=== PATIENT | female | born 1995 | race Caucasian/White ===

== ENCOUNTER 2018-06-23 22:30 | Inpatient (IN) | payer OTHER ==
[2018-06-24] MEDS ORDERED: Ondansetron 4 MG/2 ML SDV IVPUSH PRN (01:13)
[2018-06-24] MEDS ORDERED: Nalbuphine 20 MG/ML 1 ML Syringe IVPUSH PRN (01:13)
[2018-06-24] MEDS ORDERED: Sodium Chloride 0.9% 10 ML Syringe FLUSH PRN (01:13)
[2018-06-24] MEDS ORDERED: Ampicillin 2 GM in Sodium Chloride 0.9% 100 ML IV ONE (01:13)
[2018-06-24] MEDS ORDERED: Oxytocin/Lactated Ringers 10 UNIT/1,000 ML BAG IV SCH ×2 (01:15)
[2018-06-24] MEDS: Lactated Ringers 1,000 ML IV SCH ×3 (03:20→08:08)
[2018-06-24] MEDS: Ampicillin 1 GM in Sodium Chloride 0.9% 100 ML IV SCH ×2 (07:16→11:36)
[2018-06-24] MEDS ORDERED: diphenhydrAMINE 50 MG/ML SDV IVPUSH PRN (07:49)
[2018-06-24] MEDS ORDERED: fentaNYL 100 MCG/2 ML SDV EPIDUR PRN (07:49)
[2018-06-24] MEDS ORDERED: ePHEDrine 50 MG/ML SDV IVPUSH PRN (07:49)
[2018-06-24] MEDS ORDERED: fentaNYL/Bupivacaine-NS 2 MCG/ML-0.125%/PF 100 ML Bag EP SCH (08:00)
[2018-06-24] MEDS ORDERED: Lidocaine 1.5% with EPINEPHrine 1:200,000 5 ML Amp ONE (08:00)
[2018-06-24] MEDS ORDERED: Bupivacaine 0.25% 10 ML SDV ONE (08:00)
--- NOTE | 2018-06-24 08:06 | PCM.PREANE ---
Preanesthetic Assessment - Procedure Proposed Procedure: chhaya - Anesthesia/Transfusion/Family Hx Anesthesia History: Prior Anesthesia Without Reaction Family History of Anesthesia Reaction: No Transfusion History: Prior Transfusion Without Reaction - Review of Systems General: No Symptoms Pulmonary: No Symptoms Cardiovascular: No Symptoms Gastrointestinal: No Symptoms Neurological: No Symptoms Other: Reports: Thyroid Problems, Depression - Physical Assessment O2 Sat by Pulse Oximetry: 96 Respiratory Rate: 16 Vital Signs: Last Vital Signs Temp 99.2 F 06/24/18 01:09 Pulse 100 06/24/18 01:09 Resp 16 06/24/18 01:09 BP 123/71 06/24/18 01:09 Pulse Ox 96 06/24/18 01:09 Height: 5 ft 5 in Weight: 93.44 kg Mental Status: Alert & Oriented x3 Airway Class: Mallampati = 1 Dentition: Reports: Normal Dentition Thyro-Mental Finger Breadths: 3 Mouth Opening Finger Breadths: 3 ROM/Head Extension: Full Lungs: Clear to Auscultation, Normal Respiratory Effort Cardiovascular: Regular Rate, Regular Rhythm - Lab Values: Laboratory Last Values WBC 11.03 K/mm3 (3.98-10.04) H 06/24/18 01:30 RBC 3.94 M/mm3 (3.98-5.22) L 06/24/18 01:30 Hgb 10.7 gm/L (11.2-15.7) L 06/24/18 01:30 Hct 32.7 % (34.1-44.9) L 06/24/18 01:30 MCV 83.0 fl (79.4-94.8) 06/24/18 01:30 MCH 27.2 pg (25.6-32.2) 06/24/18 01:30 MCHC 32.7 g/dl (32.2-35.5) 06/24/18 01:30 RDW Std Deviation 51.6 fL (36.4-46.3) H 06/24/18 01:30 Plt Count 253 K/mm3 (182-369) 06/24/18 01:30 MPV 9.7 fl (9.4-12.3) 06/24/18 01:30 Neut % (Auto) 75.0 % (34.0-71.1) H 06/24/18 01:30 Lymph % (Auto) 17.2 % (19.3-51.7) L 06/24/18 01:30 Sequoyah % (Auto) 6.7 % (4.7-12.5) 06/24/18 01:30 Eos % (Auto) 0.5 (0.7-5.8) L 06/24/18 01:30 Baso % (Auto) 0.1 % (0.1-1.2) 06/24/18 01:30 Neut # (Auto) 8.27 K/mm3 (1.56-6.13) H 06/24/18 01:30 Lymph # (Auto) 1.90 K/mm3 (1.18-3.74) 06/24/18 01:30 Sequoyah # (Auto) 0.74 K/mm3 (0.24-0.36) H 06/24/18 01:30 Eos # (Auto) 0.06 K/mm3 (0.04-0.36) 06/24/18 01:30 Baso # (Auto) 0.01 K/mm3 (0.01-0.08) 06/24/18 01:30 Blood Type O POSITIVE 06/24/18 01:30 Gel Antibody Screen Negative 06/24/18 01:30 - Allergies Allergies/Adverse Reactions: Allergies Allergy/AdvReac Type Severity Reaction Status Date / Time No Known Allergies Allergy Unverified 04/15/18 20:24 - Blood Blood Available: No - Acknowledgements Anesthesia Type Planned: Epidural Pt an Appropriate Candidate for the Planned Anesthesia: Yes Alternatives and Risks of Anesthesia Discussed w Pt/Guardian: Yes Pt/Guardian Understands and Agrees with Anesthesia Plan: Yes PreAnesthesia Questionnaire - Past Health History Medical/Surgical History: Denies Medical/Surgical History Cardiovascular History: Reports: None Respiratory History: Reports: None Gastrointestinal History: Reports: None 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: Psychiatric History: Reports: Depression Endocrine/Metabolic History: Reports: Hypothyroidism, Other (See Below) Other Endocrine/Metabolic History: Tyrese's Hematologic History: Reports: Blood Transfusion(s), Other (See Below) Other Hematologic History: Blood transfusion following Primary c/s - Past Surgical History Female Surgical History: Reports: Section - SUBSTANCE USE Smoking Status *Q: Never Smoker Tobacco Use Within Last Twelve Months: No Second Hand Smoke Exposure: No Days Per Week of Alcohol Use: 0 Recreational Drug Use History: No - HOME MEDS Home Medications: Home Meds Iron 18 mg PO DAILY 12/25/15 [History] Levothyroxine [Synthroid] 100 mcg PO ACBREAKFAST 12/25/15 [History] oxyCODONE HCl/Acetaminophen [Endocet 5-325 Tablet] 1 each PO Q4H PRN 12/25/15 [ History] - CURRENT (IN HOUSE) MEDS Current Meds: Current Medications Diphenhydramine HCl (Benadryl) 25 mg IVPUSH Q6H PRN PRN Reason: pruritis Ephedrine Sulfate (Ephedrine Sulfate) 5 mg IVPUSH ASDIRECTED PRN PRN Reason: Hypotension Fentanyl (Sublimaze) 100 mcg EPIDUR Q3H PRN PRN Reason: Pain Fentanyl/Bupivacaine HCl (Foqauscw-Arqem-Pz 2 Mcg/Ml-0.125%) 100 ml EP ASDIRECTED CARMEN Ampicillin Sodium 1 gm/ Sodium (Chloride) 100 mls @ 200 mls/hr IV Q4H CARMEN Last Admin: 06/24/18 07:16 Dose: 200 mls/hr Lactated Ringer's (Ringers, Lactated) 1,000 mls @ 100 mls/hr IV ASDIRECTED CARMEN Last Admin: 06/24/18 07:15 Dose: 100 mls/hr Oxytocin/Lactated Ringer's (Pitocin In Lr 10 Units/1,000 Ml) 10 unit in 1,000 mls @ 500 mls/hr IV CONTINUOUS CARMEN Oxytocin/Lactated Ringer's (Pitocin In Lr 10 Units/1,000 Ml) 10 unit in 1,000 mls @ 12 mls/hr IV TITRATE CARMEN; Protocol Last Admin: 06/24/18 03:40 Dose: 2 munits/min, 12 mls/hr Nalbuphine HCl (Nubain) 10 mg IVPUSH Q2H PRN PRN Reason: pain Ondansetron HCl (Zofran) 4 mg IVPUSH Q4H PRN PRN Reason: Nausea/Vomiting Sodium Chloride (Saline Flush) 10 ml FLUSH ASDIRECTED PRN PRN Reason: Keep Vein Open Discontinued Medications Ampicillin Sodium 2 gm/ Sodium (Chloride) 100 mls @ 200 mls/hr IV ONETIME ONE Stop: 06/24/18 01:42 Last Admin: 03/14/19 03:20 Dose: 200 mls/hr
--- NOTE | 2018-06-24 14:04 | PCM.LDHP ---
L&D History of Present Illness - General Date of Service: 06/24/18 Admit Problem/Dx: Patient Status Order with Admit Dx/Problem 06/24/18 01:09 Patient Status [ADT] Routine 06/24/18 07:34 Admission Status [Patient Status] [ADT] Routine Admission Diagnosis/Problem Admission Diagnosis/Problem 06/24/18 13:54 38-6/7 week intrauterine , active labor, cervical change. History of previous section desire for . Source of Information: Patient History Limitations: Reports: No Limitations - History of Present Illness Introduction:: Luz Maria Is a 23-year-old 2 para 1001 white female who is admitted for active labor. ANGEL is 07/02/[address] her at 38-6/7 weeks gestational age at the time of her admission. Active labor, cervical change noted. Wellbutrin history 2 para 1001. Patient had menarche approximately age 11. LMP 09/25/2017. LMP is the dating primary use for . It is supported by 2 ultrasounds 31/12/2017 02/16/2018. Patient's previous resulted in delivery of a 9 lbs. 2 oz. female infant on 12/18/2015 via primary section done for failure to progress/failed vacuum extraction delivery. With this patient is seen on a regular basis since her first visit was on 01/13/2018. She made good fundal height growth. Weight gain has been from 194-204 for 10 pound gain. She's had some depression symptoms. She declined genetic testing. She desires an epidural in labor and delivery. She had her flu shot on 01/13/2018. She is group B strep positive. She has a history of Tyrese's disease. She received her T Dap on 04/21/2018. She is rubella immune. Fundal height growth appropriate. She plans to breast-feed. She has history of vitamin D deficiency. Laboratory testing and shows blood to be positive with negative antibody screen. First labs show hemoglobin 12.9 g/dL and platelets 238 ,000. She is rubella immune. RPR is nonreactive. Group B strep noted on initial urine culture. GC and chlamydia assays both negative. Her second trimester labs showed a hemoglobin of 10.5 g/dL. Platelets were 275,000. One-hour GTT was 144 but three-hour glucose tolerance test was normal. TSH on 04/21/2018 was 1.539. RPR same time was nonreactive. Allergies Medications: 1. Levothyroxine 175 mg by mouth every Thursday and Thursday, levothyroxin 150 mg by mouth Thursday through Thursday. 2. vitamins daily Past medical history: Hypothyroidism 2. Tyrese's thyroiditis history Past surgical history: unremarkable Family history: Patient's sister and mother been diagnosed with Tyrese's thyroiditis. Mother is in good health otherwise. Father is alive and well. One brother alive and well. Maternal grandfather is alive and well. Maternal grandmother is alive but history of breast cancer 2 status post chemotherapy, radiation, mastectomy, also with heart valve transplant. Paternal grandfather is alive and well. Paternal grandmother is in late 70s from Alzheimer' s. No family history of cancer conference related issues, bleeding or clotting abnormalities. Social history: Patient is , lives in [facility], is [place]. She does not use any significant most alcohol, drugs or tobacco. Review of systems: In general patient has no complaints other than contractions. Babies been active. Skin: Negative Lungs: No infectious symptoms or shortness of breath Cardiovascular: No chest pain or exercise intolerance Breasts: No lumps, changes in size, pain, dimpling, discharge or axillary or supraclavicular concerns. GI: Negative : Negative other than changes associated . Musculoskeletal: Negative Neurological: Negative In general the patient is well-developed, well-nourished, pleasant female of stated age in no acute distress. Skin is warm dry without lesions. HEENT, neck and back within normal limits. Lungs are clear with good breath sounds in all lung rodriguez. Cardiovascular exam shows regular and rhythm without murmurs. Abdomen is flat, soft, nontender without masses or organomegaly. Positive bowel sounds are noted. No inguinal lymphadenopathy or hernias are noted. Breast exam deferred having having been done previously and found to be normal. Genital shows cervical exam on admission to be 3 cm, significantly thinned out from previous evaluation. Bulging bag. Extremities and neurological exam are grossly within normal limits. Pain Score: 9 - Related Data Allergies/Adverse Reactions: Allergies Allergy/AdvReac Type Severity Reaction Status Date / Time No Known Allergies Allergy Unverified 04/15/18 20:24 Home Medications: Home Meds Iron 18 mg PO DAILY 12/25/15 [History] Levothyroxine [Synthroid] 100 mcg PO ACBREAKFAST 12/25/15 [History] oxyCODONE HCl/Acetaminophen [Endocet 5-325 Tablet] 1 each PO Q4H PRN 12/25/15 [ History] Past Medical History - Past Health History Medical/Surgical History: Denies Medical/Surgical History Cardiovascular History: Reports: None Respiratory History: Reports: None Gastrointestinal History: Reports: None 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: Psychiatric History: Reports: Depression Endocrine/Metabolic History: Reports: Hypothyroidism, Other (See Below) Other Endocrine/Metabolic History: Tyrese's Hematologic History: Reports: Blood Transfusion(s), Other (See Below) Other Hematologic History: Blood transfusion following Primary c/s - Past Surgical History Female Surgical History: Reports: Section Social & Family History - Family History Family Medical History: Noncontributory - Tobacco Use Smoking Status *Q: Never Smoker Second Hand Smoke Exposure: No - Caffeine Use Caffeine Use: Reports: None - Alcohol Use Days Per Week of Alcohol Use: 0 - Recreational Drug Use Recreational Drug Use: No H&P Review of Systems - Review of Systems: Review Of Systems: See Below L&D Exam - Exam Exam: See Below - Vital Signs Vital Signs: Last Vital Signs Temp 37.3 C 06/24/18 01:09 Pulse 100 06/24/18 01:09 Resp 16 06/24/18 08:06 BP 123/71 06/24/18 01:09 Pulse Ox 96 06/24/18 08:06 Weight: 93.44 kg - Patient Data Lab Results Last 24 hrs: Laboratory Results - last 24 hr 06/24/18 06/24/18 Range/Units 01:30 01:30 WBC 11.03 H (3.98-10.04) K/mm3 RBC 3.94 L (3.98-5.22) M/mm3 Hgb 10.7 L (11.2-15.7) gm/L Hct 32.7 L (34.1-44.9) % MCV 83.0 (79.4-94.8) fl MCH 27.2 (25.6-32.2) pg MCHC 32.7 (32.2-35.5) g/dl RDW Std Deviation 51.6 H (36.4-46.3) fL Plt Count 253 (182-369) K/mm3 MPV 9.7 (9.4-12.3) fl Neut % (Auto) 75.0 H (34.0-71.1) % Lymph % (Auto) 17.2 L (19.3-51.7) % Bibb % (Auto) 6.7 (4.7-12.5) % Eos % (Auto) 0.5 L (0.7-5.8) Baso % (Auto) 0.1 (0.1-1.2) % Neut # (Auto) 8.27 H (1.56-6.13) K/mm3 Lymph # (Auto) 1.90 (1.18-3.74) K/mm3 Bibb # (Auto) 0.74 H (0.24-0.36) K/mm3 Eos # (Auto) 0.06 (0.04-0.36) K/mm3 Baso # (Auto) 0.01 (0.01-0.08) K/mm3 Blood Type O POSITIVE Gel Antibody Screen Negative Result Diagrams: 06/24/18 01:30 Problem List Initiated/Reviewed/Updated: Yes Orders Last 24hrs: Active Orders 24 hr Category Date Time Status Admission Status [Patient Status] [ADT] Routine ADT 06/24/18 07:34 Active Activity as Tolerated [RC] PFP Care 06/24/18 01:13 Active Communication Order [RC] ASDIRECTED Care 06/24/18 01:13 Active Heart Tones [RC] ASDIRECTED Care 06/24/18 01:13 Active Non Stress Test [RC] PER UNIT ROUTINE Care 06/24/18 01:13 Active Notify Provider [RC] ASDIRECTED Care 06/24/18 07:49 Active Notify Provider [RC] PFP Care 06/24/18 01:13 Active Notify Provider [RC] PRN Care 06/24/18 01:13 Active Peripheral IV Care [RC] . DIRECTED Care 06/24/18 01:13 Active Vital Signs [RC] PER UNIT ROUTINE Care 06/24/18 01:09 Active Vital Signs [RC] PER UNIT ROUTINE Care 06/24/18 01:13 Active Regular Diet [DIET] Diet 06/24/18 Breakfast Active PATIENT RETYPE [BBK] Routine Lab 06/24/18 01:30 Received RAPID PLASMA REAGIN,RPR [CHEM] Routine Lab 06/24/18 01:30 Received Ampicillin 1 gm Med 06/24/18 08:00 Active Sodium Chloride 0.9% [Normal Saline] 100 ml IV Q4H Lactated Ringers [Ringers, Lactated] 1,000 ml Med 06/24/18 01:15 Active IV ASDIRECTED Nalbuphine [Nubain] Med 06/24/18 01:13 Active 10 mg IVPUSH Q2H PRN Ondansetron [Zofran] Med 06/24/18 01:13 Active 4 mg IVPUSH Q4H PRN Oxytocin/Lactated Ringers [Pitocin in LR 10 Units/1,000 Med 06/24/18 01:15 Active ML] 10 unit in 1,000 ml IV CONTINUOUS Oxytocin/Lactated Ringers [Pitocin in LR 10 Units/1,000 Med 06/24/18 01:15 Active ML] 10 unit in 1,000 ml IV TITRATE Sodium Chloride 0.9% [Saline Flush] Med 06/24/18 01:13 Active 10 ml FLUSH ASDIRECTED PRN diphenhydrAMINE [Benadryl] Med 06/24/18 07:49 Active 25 mg IVPUSH Q6H PRN ePHEDrine [ePHEDrine sulfate] Med 06/24/18 07:49 Active 5 mg IVPUSH ASDIRECTED PRN fentaNYL [Sublimaze] Med 06/24/18 07:49 Active 100 mcg EPIDUR Q3H PRN fentaNYL/Bupivacaine/NS/PF [[id number]-Mmizj-PE 2 MCG/ML- Med 06/24/18 08:00 Active 0.125%] 100 ml EP ASDIRECTED Electronic Heart Tones Ext w TOCO [WOMSER] Oth 06/24/18 01:13 Ordered Routine Electronic Heart Tones Internal [WOMSER] Per Unit Oth 06/24/18 01:13 Ordered Routine Peripheral IV Insertion Adult [OM.PC] Routine Oth 06/24/18 01:13 Ordered Resuscitation Status Routine Resus Stat 06/24/18 01:09 Ordered Medication Orders Diphenhydramine HCl (Benadryl) 25 mg IVPUSH Q6H PRN PRN Reason: pruritis Ephedrine Sulfate (Ephedrine Sulfate) 5 mg IVPUSH ASDIRECTED PRN PRN Reason: Hypotension Fentanyl (Sublimaze) 100 mcg EPIDUR Q3H PRN PRN Reason: Pain Last Admin: 06/24/18 08:20 Dose: 100 mcg Fentanyl/Bupivacaine HCl (Annnqokg-Djmvo-Ya 2 Mcg/Ml-0.125%) 100 ml EP ASDIRECTED CARMEN Last Admin: 06/24/18 08:20 Dose: 100 ml Ampicillin Sodium 1 gm/ Sodium (Chloride) 100 mls @ 200 mls/hr IV Q4H CARMEN Last Admin: 06/24/18 11:36 Dose: 200 mls/hr Infusion: 06/24/18 07:46 Dose: 200 mls/hr Admin: 06/24/18 07:16 Dose: 200 mls/hr Lactated Ringer's (Ringers, Lactated) 1,000 mls @ 100 mls/hr IV ASDIRECTED [facility] Last Admin: 06/24/18 08:08 Dose: 100 mls/hr Infusion: 06/24/18 08:08 Dose: 100 mls/hr Admin: 06/24/18 07:15 Dose: 100 mls/hr Infusion: 06/24/18 07:15 Dose: 100 mls/hr Admin: 06/24/18 03:20 Dose: 100 mls/hr Oxytocin/Lactated Ringer's (Pitocin In Lr 10 Units/1,000 Ml) 10 unit in 1,000 mls @ 500 mls/hr IV CONTINUOUS CARMEN Oxytocin/Lactated Ringer's (Pitocin In Lr 10 Units/1,000 Ml) 10 unit in 1,000 mls @ 12 mls/hr IV TITRATE CARMEN; Protocol Last Titration: 06/24/18 13:28 Dose: 500 mls/hr Admin: 06/24/18 03:40 Dose: 2 munits/min, 12 mls/hr Nalbuphine HCl (Nubain) 10 mg IVPUSH Q2H PRN PRN Reason: pain Ondansetron HCl (Zofran) 4 mg IVPUSH Q4H PRN PRN Reason: Nausea/Vomiting Sodium Chloride (Saline Flush) 10 ml FLUSH ASDIRECTED PRN PRN Reason: Keep Vein Open Assessment/Plan Comment:: 1. 38-6/7 week intrauterine , active labor, cervical change 2. Group B strep positive-candidate for group B strep prophylaxis 3. Patient Plans to Nurse 4. History of Previous Section for Failure Progress/Vacuum Extraction Delivery-Patient Desires Trial Labor after Section for a Attempt. Procedure, Risks, Benefits, Precautions All Discussed with Patient. She Has Signed a Consent for and for , Labs Have Been Drawn. Patient Will Be Monitoring Her Continuously during the Course of Labor. Anesthesia and Surgery Department Several Been Alerted of Her Presence in Labor Delivery. 5. RPR is not reactive. Patient's had her T-dap. Patient has had her flu shot. 6. Hypothyroidism on replacement and clinically euthyroid. Plan: 1. Anticipate normal spontaneous vaginal delivery 2. Continue levothyroxine 3. Support breast-feeding decision. 4. Epidural for labor and analgesia
[2018-06-24] MEDS ORDERED: Benzocaine/Menthol 20%-0.5% Spray 56 GM Canister TOP PRN (14:13)
[2018-06-24] MEDS ORDERED: Witch Hazel Medicated Pads 40/Jar TOP PRN (14:13)
[2018-06-24] MEDS ORDERED: Lanolin 100% Cream 7 GM Tube TOP PRN (14:13)
[2018-06-24] MEDS ORDERED: Acetaminophen 325 MG Tab PO PRN (14:13)
--- NOTE | 2018-06-24 14:16 | PCM.SN ---
- Free Text/Narrative Note: Delivery note: Luz Maria is a 23-year-old 2 now para 2002 white female admitted on 2018 at 38-5/7 weeks gestational age in active labor. She made cervical change and decision was made to keep her in the hospital because of her history of previous and distance from hospital she lives in [place]. Patient progressed to 3-4 cm, underwent artificial rupture members with resultant clear amniotic fluid. She had an epidural placed. She progressed to complete cervical dilation by approximately 1130 hrs. on 06/24/2018. She pushed for approximately 2 hours and at 1327 hrs. she delivered a viable, [place], female infant with Apgars 8 and 9, length of 20.0 inches, a weight of 3580 g (7 pounds 14.3 ounces). Baby's name is Rj Cleaning. Delivered in a right occiput anterior position. Baby was placed on mom's abdomen. Cord was clamped 2 after about 1 minute of along the cord pulsate. This was cut by the baby's father. Cord blood was obtained. Placenta eventually delivered in a Tate presentation, appeared intact and complete and was discarded per patient desire. Patient had a second-degree perineal laceration which was repaired with 3-0 Monocryl suture. Estimated blood loss was 200 mL. Patient plans to breast-feed. Edition: Good
[2018-06-24] MEDS: Ibuprofen 600 MG Tab PO PRN (14:51)
[2018-06-25] MEDS: Docusate Sodium 100 MG Cap PO PRN ×2 (03:31→15:39)
[2018-06-25] MEDS: Ibuprofen 600 MG Tab PO PRN ×2 (05:06→18:24)
[2018-06-25] MEDS ORDERED: LEVOTHYROXINE 150 MCG PO ONE (06:00)
--- NOTE | 2018-06-25 09:09 | PCM48HPAN ---
Post Anesthesia Note - EVALUATION WITHIN 48HRS OF ANESTHETIC Vital Signs in Normal Range: Yes Patient Participated in Evaluation: Yes Respiratory Function Stable: Yes Airway Patent: Yes Cardiovascular Function Stable: Yes Hydration Status Stable: Yes Pain Control Satisfactory: Yes Nausea and Vomiting Control Satisfactory: Yes Mental Status Recovered: Yes - COMMENTS/OBSERVATIONS Free Text/Narrative:: No complications noted. No further questions an this time.
--- NOTE | 2018-06-25 10:34 | PCM.SN ---
- Free Text/Narrative Note: Post Progress Note PPD # 1 Subjective: Doing well overall. Ambulating without difficulty. Lochia minimal. Voiding without difficulty. Tolerating regular diet without nausea or vomiting. Pain controlled with oral medications. Breast-feeding with minimal difficulty. Objective: Vitals: Vital Signs - 24 hr 06/24/18 06/25/18 20:00 03:27 Temperature 36.4 C 36.7 C Pulse, 102 H 81 Peripheral Respiratory 16 16 Rate Blood Pressure 103/61 117/75 O2 Sat by Pulse 98 99 Oximetry Physical Exam General: Alert and oriented, no acute distress Lungs: Clear to auscultation bilaterally Heart: Regular rate and rhythm Abdomen: Soft, minimal appropriate tenderness, non-distended, fundus midline, nontender, and at the umbilicus Extremities: No edema ASSESSMENT: 23-year-old female s/p vaginal delivery after section PPD #1, complicated by history of section, GBS positive status post 3 doses of antibiotics, hypothyroidism PLAN: Doing well Breast-feeding with minimal difficulty. Assist as needed Lochia minimal. Continue to monitor for appropriate lochia. Continue routine care Anticipate discharge home today or tomorrow depending on status Amado Akins MD 10:33 AM 06/25/2018
--- NOTE | 2018-06-25 10:53 | PCM.DCSUM1 ---
Discharge Summary - Hospital Course Free Text/Narrative:: Delivery note: Luz Maria is a 23-year-old 2 now para 2003 white female admitted on 2018 at 38-5/7 weeks gestational age in active labor. She made cervical change and decision was made to keep her in the hospital because of her history of previous and distance from hospital she lives in [place]. Patient progressed to 3-4 cm, underwent artificial rupture members with resultant clear amniotic fluid. She had an epidural placed. She progressed to complete cervical dilation by approximately 1130 hrs. on 06/24/2018. She pushed for approximately 2 hours and at 1327 hrs. she delivered a viable, astorga, female infant with Apgars 8 and 9, length of 20.0 inches, a weight of 3580 g (7 pounds 14.3 ounces). Baby's name is Rj Cleaning. Delivered in a right occiput anterior position. Baby was placed on mom's abdomen. Cord was clamped 2 after about 1 minute of along the cord pulsate. This was cut by the baby's father. Cord blood was obtained. Placenta eventually delivered in a Tate presentation, appeared intact and complete and was discarded per patient desire. Patient had a second-degree perineal laceration which was repaired with 3-0 Monocryl suture. Estimated blood loss was 200 mL. Patient plans to breast-feed. Edition: Good FLAVIO Initial Comments: Delivery note: Luz Maria is a 23-year-old 2 now para 2002 white female admitted on 2018 at 38-5/7 weeks gestational age in active labor. She made cervical change and decision was made to keep her in the hospital because of her history of previous and distance from hospital she lives in [place]. Patient progressed to 3-4 cm, underwent artificial rupture members with resultant clear amniotic fluid. She had an epidural placed. She progressed to complete cervical dilation by approximately 1130 hrs. on 06/24/2018. She pushed for approximately 2 hours and at 1327 hrs. she delivered a viable, astorga, female infant with Apgars 8 and 9, length of 20.0 inches, a weight of 3580 g (7 pounds 14.3 ounces). Baby's name is Rj Cleaning. Delivered in a right occiput anterior position. Baby was placed on mom's abdomen. Cord was clamped 2 after about 1 minute of along the cord pulsate. This was cut by the baby's father. Cord blood was obtained. Placenta eventually delivered in a Tate presentation, appeared intact and complete and was discarded per patient desire. Patient had a second-degree perineal laceration which was repaired with 3-0 Monocryl suture. Estimated blood loss was 200 mL. Patient plans to breast-feed. Edition: Good Brief History: Delivery note: Luz Maria is a 23-year-old 2 now para 2002 white female admitted on 06/23/2018 at 38-5/7 weeks gestational age in active labor. She made cervical change and decision was made to keep her in the hospital because of her history of previous and distance from hospital she lives in [place]. Patient progressed to 3-4 cm, underwent artificial rupture members with resultant clear amniotic fluid. She had an epidural placed. She progressed to complete cervical dilation by approximately 1130 hrs. on 06/24/2018. She pushed for approximately 2 hours and at 1327 hrs. she delivered a viable, astorga, female with Apgars 8 and 9, length of 20.0 inches, a weight of 3580 g (7 pounds 14.3 ounces). Baby's name is Rj Cleaning. Delivered in a right occiput anterior position. Baby was placed on mom's abdomen. Cord was clamped 2 after about 1 minute of along the cord pulsate. This was cut by the baby's father. Cord blood was obtained. Placenta eventually delivered in a Tate presentation, appeared intact and complete and was discarded per patient desire. Patient had a second-degree perineal laceration which was repaired with 3-0 Monocryl suture. Estimated blood loss was 200 mL. Patient plans to breast-feed. Edition: Good Diagnosis: Stroke: No - Discharge Data Discharge Date: 06/25/18 Discharge Disposition: Home, Self-Care 01 Condition: Good - Discharge Diagnosis/Problem(s) (1) 38 weeks gestation of SNOMED Code(s): 64782547 ICD Code: Z3A.38 - 38 WEEKS GESTATION OF Status: Acute Current Visit: Yes (2) Hypothyroidism affecting in third trimester SNOMED Code(s): 227653764, 397902183 ICD Code: O99.283 - ENDO, NUTRITIONAL AND METAB DISEASES COMP PREG, THIRD TRI ; E03.9 - HYPOTHYROIDISM, UNSPECIFIED Status: Acute Current Visit: Yes (3) GBS (group B Streptococcus carrier), +RV culture, currently SNOMED Code(s): 1530625984486, 269045855, 3759296990824 ICD Code: O99.820 - STREPTOCOCCUS B CARRIER STATE COMPLICATING Status: Acute Current Visit: Yes (4) History of delivery SNOMED Code(s): 938198589 ICD Code: Z98.891 - HISTORY OF UTERINE SCAR FROM PREVIOUS SURGERY Status: Acute Current Visit: Yes (5) History of delivery affecting SNOMED Code(s): 237908763, 940389285 ICD Code: O34.219 - MATERNAL CARE FOR UNSP TYPE SCAR FROM PREVIOUS DEL Status: Acute Current Visit: Yes (6) Vaginal delivery SNOMED Code(s): 205662369 ICD Code: O80 - ENCOUNTER FOR FULL-TERM UNCOMPLICATED DELIVERY Status: Acute Current Visit: Yes (7) Vaginal delivery following previous section, delivered SNOMED Code(s): 431269624 ICD Code: O34.219 - MATERNAL CARE FOR UNSP TYPE SCAR FROM PREVIOUS DEL Status: Acute Current Visit: Yes (8) Second degree perineal laceration during delivery SNOMED Code(s): 8081543 ICD Code: O70.1 - SECOND DEGREE PERINEAL LACERATION DURING DELIVERY Status : Acute Current Visit: Yes - Patient Summary/Data Complications: None Consults: None Hospital Course: Luz Maria Garcia was admitted for active labor with cervical change and remote distance from the hospital. On admission her cervix was dilated to 3 cm. She was GBS positive and was started on ampicillin and received a total of 3 doses prior to delivery. She was given an epidural for anesthesia. She had artificial rupture of membranes with clear fluid. She progressed to complete and began pushing. On 06/24/2018 she had a vaginal delivery after section of a live female at 1327. Apgars of 8 and 9. Weight of 3580 g ( 7 pounds 14.3 ounces). Her course was uneventful. Her pain was well controlled and she had minimal lochia. She was ambulating, tolerating a regular diet and voiding normally. She was breast-feeding with minimal difficulty. She was afebrile and her hematocrit was 32.7 on admission. She desired to be discharged home in the evening of PPD #1. Her blood type is O+. - Patient Instructions Diet: Regular Diet as Tolerated Activity: Apply Ice, As Tolerated Activity, Other: Nothing in the vagina for 6 weeks. Showering/Bathing: May Shower Notify Provider of: Fever, Increased Pain, Swelling and Redness, Drainage, Nausea and/or Vomiting Other/Special Instructions: Please contact your physician's office if you have heavy vaginal bleeding enough to soak a pad in less than an hour for several hours. Monitor for any signs of an infection in the breasts with severe pain or redness of the breast. - Discharge Plan *PRESCRIPTION DRUG MONITORING PROGRAM REVIEWED*: Not Applicable *COPY OF PRESCRIPTION DRUG MONITORING REPORT IN PATIENT GAYLE: Not Applicable Home Medications: Home Meds Iron 18 mg PO DAILY 12/25/15 [History] Levothyroxine [Synthroid] 100 mcg PO ACBREAKFAST 12/25/15 [History] Acetaminophen [Tylenol] 650 mg PO Q6H PRN tablet 06/25/18 [Rx] Benzocaine/Menthol [Dermoplast Pain Relief [place]] 1 spray TOP ASDIRECTED PRN canister 06/25/18 [Rx] Docusate Sodium [Colace] 100 mg PO BID PRN cap 06/25/18 [Rx] Ibuprofen [Motrin] 600 mg PO Q6H PRN tablet 06/25/18 [Rx] Lanolin [Lansinoh HPA] 1 applic TOP ASDIRECTED PRN tube 06/25/18 [Rx] Witch Trudi [Tucks] 1 pad TOP ASDIRECTED PRN pad 06/25/18 [Rx] Patient Handouts: Vaginal Delivery, Care After, Care of a Perineal Tear Referrals: Rick Grider MD [Primary Care Provider] - (Follow-up in 2-3 weeks for routine visit or earlier as needed.) - Discharge Summary/Plan Comment DC Time >30 min.: No - Patient Data Vitals - Most Recent: Last Vital Signs Temp 36.7 C 06/25/18 03:27 Pulse 81 06/25/18 03:27 Resp 16 06/25/18 03:27 BP 117/75 06/25/18 03:27 Pulse Ox 99 06/25/18 03:27 Weight - Most Recent: 93.44 kg I&O - Last 24 hours: Intake & Output 06/24/18 06/25/18 06/25/18 22:59 06:59 14:59 Intake Total 1000 380 Balance 1000 380 Lab Results - Last 24 hrs: Laboratory Results - last 24 hr 06/24/18 Range/Units 01:30 RPR Non-reactive (NONREACTIVE) Med Orders - Current: Current Medications Acetaminophen (Tylenol) 650 mg PO Q4H PRN PRN Reason: mild pain or fever Benzocaine/Menthol (Dermoplast Pain Relief [place]) 0 gm TOP ASDIRECTED PRN PRN Reason: Perineal Comfort Measure Last Admin: 06/24/18 14:41 Dose: 1 applic Docusate Sodium (Colace) 100 mg PO BID PRN PRN Reason: Constipation Last Admin: 06/25/18 03:31 Dose: 100 mg Emollient Ointment (Lansinoh Hpa) 0 gm TOP ASDIRECTED PRN PRN Reason: Sore Nipples Ibuprofen (Motrin) 600 mg PO Q4H PRN PRN Reason: Mild pain or fever Last Admin: 06/25/18 05:06 Dose: 600 mg Witch Trudi (Tucks) 1 pad TOP ASDIRECTED PRN PRN Reason: Pain Last Admin: 06/24/18 14:42 Dose: 1 applic Discontinued Medications Bupivacaine HCl (Sensorcaine-Mpf 0.25%) 10 ml .ROUTE .STK-MED ONE Stop: 06/24/18 08:01 Diphenhydramine HCl (Benadryl) 25 mg IVPUSH Q6H PRN PRN Reason: pruritis Ephedrine Sulfate (Ephedrine Sulfate) 5 mg IVPUSH ASDIRECTED PRN PRN Reason: Hypotension Fentanyl (Sublimaze) 100 mcg EPIDUR Q3H PRN PRN Reason: Pain Last Admin: 06/24/18 08:20 Dose: 100 mcg Fentanyl/Bupivacaine HCl (Ukpzwjnz-Pvifn-Kn 2 Mcg/Ml-0.125%) 100 ml EP ASDIRECTED CARMEN Last Admin: 06/24/18 08:20 Dose: 100 ml Ampicillin Sodium 2 gm/ Sodium (Chloride) 100 mls @ 200 mls/hr IV ONETIME ONE Stop: 06/24/18 01:42 Last Admin: 06/24/18 03:20 Dose: 200 mls/hr Ampicillin Sodium 1 gm/ Sodium (Chloride) 100 mls @ 200 mls/hr IV Q4H CARMEN Last Admin: 06/24/18 11:36 Dose: 200 mls/hr Lactated Ringer's (Ringers, Lactated) 1,000 mls @ 100 mls/hr IV ASDIRECTED CARMEN Last Admin: 06/24/18 08:08 Dose: 100 mls/hr Oxytocin/Lactated Ringer's (Pitocin In Lr 10 Units/1,000 Ml) 10 unit in 1,000 mls @ 500 mls/hr IV CONTINUOUS CARMEN Oxytocin/Lactated Ringer's (Pitocin In Lr 10 Units/1,000 Ml) 10 unit in 1,000 mls @ 12 mls/hr IV TITRATE CARMEN; Protocol Last Titration: 06/24/18 13:28 Dose: 500 mls/hr Levothyroxine Sodium (Levothyroxine) 150 mcg PO ONETIME ONE Stop: 06/25/18 06:01 Last Admin: 06/25/18 05:06 Dose: Not Given Lidocaine/Epinephrine (Xylocaine-Mpf 1.5% W/Epinephrine 1:200,000) 5 ml .ROUTE .STK-MED ONE Stop: 06/24/18 08:01 Nalbuphine HCl (Nubain) 10 mg IVPUSH Q2H PRN PRN Reason: pain Ondansetron HCl (Zofran) 4 mg IVPUSH Q4H PRN PRN Reason: Nausea/Vomiting Sodium Chloride (Saline Flush) 10 ml FLUSH ASDIRECTED PRN PRN Reason: Keep Vein Open
[2018-06-25 15:43] VITALS: BP 115/75
== END 2018-06-25 18:24 | disposition home or self-care (01) | DRG 807 ==
LOC: JD.OBCHECK 22:30 → JD.OB 22:31 → JD.OBCHECK 06-24 07:33 → JD.OB 06-24 07:34 → OBSVTOIN 06-24 13:27 → JD.OB 06-24 13:28
PROVIDERS: ADMIT Obstetrics & Gynecology; ATTEND Obstetrics & Gynecology
PROC: 10907ZC Drainage of Amniotic Fluid, Therapeutic from Products of Conception, Via Natural or Artificial Opening (ICD-10-PCS; principal; 2018-06-24)
PROC: 10E0XZZ Delivery of Products of Conception, External Approach (ICD-10-PCS; principal; 2018-06-24)
PROC: 6A550ZT Pheresis of Cord Blood Stem Cells, Single (ICD-10-PCS; principal; 2018-06-24)
PROC: 0KQM0ZZ Repair Perineum Muscle, Open Approach (ICD-10-PCS; principal; 2018-06-24)
PROC: 00HU33Z Insertion of Infusion Device into Spinal Canal, Percutaneous Approach (ICD-10-PCS; 2018-06-24)
PROC: 3E0R3BZ Introduction of Anesthetic Agent into Spinal Canal, Percutaneous Approach (ICD-10-PCS; 2018-06-24)
DX: O34.219 Maternal care for unspecified type scar from previous cesarean delivery (principal); Z37.0 Single live birth; N85.8 Other specified noninflammatory disorders of uterus; Z3A.38 38 weeks gestation of pregnancy; O70.1 Second degree perineal laceration during delivery; O99.284 Endocrine, nutritional and metabolic diseases complicating childbirth; E03.9 Hypothyroidism, unspecified; O99.824 Streptococcus B carrier state complicating childbirth; O99.344 Other mental disorders complicating childbirth; F32.9 Major depressive disorder, single episode, unspecified; E55.9 Vitamin D deficiency, unspecified; O69.81X0 Labor and delivery complicated by cord around neck, without compression, not applicable or unspecified
CPT/HCPCS: 01967; 36415; 51702; 59025; 59409; 85025; 86592; 86850; 86900; 86901; A9270-GY; J0290; J2590; J3010; J3490; J7030; J7120

== ENCOUNTER 2020-04-16 15:28 | Inpatient (IN) | payer BC ==
[~2020-04-16 15:28] MED LIST: Bupivacaine 0.25% 10 ML SDV ONE
[2020-04-16] MEDS ORDERED: Oxytocin/Lactated Ringers 10 UNIT/1,000 ML BAG IV SCH ×2 (15:30)
[2020-04-16] MEDS ORDERED: Sodium Chloride 0.9% 10 ML Syringe FLUSH PRN (15:30)
[2020-04-16] MEDS ORDERED: Nalbuphine 10 MG/1 ML Vial IVPUSH PRN (15:30)
[2020-04-16] MEDS ORDERED: Ondansetron 4 MG/2 ML SDV IVPUSH PRN (15:30)
[2020-04-16] MEDS: Lactated Ringers 1,000 ML IV SCH ×3 (16:19→20:33)
[2020-04-16] MEDS ORDERED: fentaNYL 100 MCG/2 ML SDV EPIDUR PRN (19:35)
[2020-04-16] MEDS ORDERED: Bupivacaine/fentaNYL/NS 100 ML Bag EPIDUR PRN (19:35)
[2020-04-16] MEDS ORDERED: diphenhydrAMINE 50 MG/ML SDV IVPUSH PRN (19:35)
[2020-04-16] MEDS ORDERED: ePHEDrine 50 MG/ML SDV IVPUSH PRN (19:35)
--- NOTE | 2020-04-16 19:53 | PCM.PREANE ---
Preanesthetic Assessment - Procedure Proposed Procedure: SPINAL FOR LABOR - Anesthesia/Transfusion/Family Hx Anesthesia History: Prior Anesthesia Without Reaction Family History of Anesthesia Reaction: No Transfusion History: Prior Transfusion Without Reaction - Review of Systems General: Fatigue Pulmonary: No Symptoms Cardiovascular: No Symptoms Gastrointestinal: Abdominal Pain (LABOR) Neurological: No Symptoms Other: Reports: None - Physical Assessment Vital Signs: Last Vital Signs Temp 36.9 C 04/16/20 15:30 Pulse Resp 16 04/16/20 15:30 BP 118/67 04/16/20 15:30 Pulse Ox 100 04/16/20 15:30 Height: 1.65 m Weight: 91.172 kg ASA Class: 2 Mental Status: Alert & Oriented x3 Airway Class: Mallampati = 1 Dentition: Reports: Normal Dentition Thyro-Mental Finger Breadths: 3 Mouth Opening Finger Breadths: 3 ROM/Head Extension: Full Lungs: Clear to Auscultation, Normal Respiratory Effort Cardiovascular: Regular Rate, Regular Rhythm - Lab Values: Laboratory Last Values WBC 9.67 K/mm3 (3.98-10.04) 04/16/20 15:45 RBC 4.45 M/mm3 (3.98-5.22) 04/16/20 15:45 Hgb 11.7 gm/dl (11.2-15.7) 04/16/20 15:45 Hct 36.8 % (34.1-44.9) 04/16/20 15:45 MCV 82.7 fl (79.4-94.8) 04/16/20 15:45 MCH 26.3 pg (25.6-32.2) 04/16/20 15:45 MCHC 31.8 g/dl (32.2-35.5) L 04/16/20 15:45 RDW Std Deviation 46.8 fL (36.4-46.3) H 04/16/20 15:45 Plt Count 261 K/mm3 (182-369) 04/16/20 15:45 MPV 10.0 fl (9.4-12.3) 04/16/20 15:45 Neut % (Auto) 70.8 % (34.0-71.1) 04/16/20 15:45 Lymph % (Auto) 21.4 % (19.3-51.7) 04/16/20 15:45 Cannon % (Auto) 6.3 % (4.7-12.5) 04/16/20 15:45 Eos % (Auto) 0.9 (0.7-5.8) 04/16/20 15:45 Baso % (Auto) 0.2 % (0.1-1.2) 04/16/20 15:45 Neut # (Auto) 6.84 K/mm3 (1.56-6.13) H 04/16/20 15:45 Lymph # (Auto) 2.07 K/mm3 (1.18-3.74) 04/16/20 15:45 Cannon # (Auto) 0.61 K/mm3 (0.24-0.36) H 04/16/20 15:45 Eos # (Auto) 0.09 K/mm3 (0.04-0.36) 04/16/20 15:45 Baso # (Auto) 0.02 K/mm3 (0.01-0.08) 04/16/20 15:45 SARS-CoV-2 RNA (SONALI) Negative (NEGATIVE) 04/16/20 15:40 - Allergies Allergies/Adverse Reactions: Allergies Allergy/AdvReac Type Severity Reaction Status Date / Time No Known Allergies Allergy Verified 04/16/20 15:34 - Anesthesia Plan Pre-Op Medication Ordered: None - Acknowledgements Anesthesia Type Planned: Spinal Pt an Appropriate Candidate for the Planned Anesthesia: Yes Alternatives and Risks of Anesthesia Discussed w Pt/Guardian: Yes Pt/Guardian Understands and Agrees with Anesthesia Plan: Yes PreAnesthesia Questionnaire - Past Health History Medical/Surgical History: Denies Medical/Surgical History Cardiovascular History: Reports: None Respiratory History: Reports: None Gastrointestinal History: Reports: None, GERD 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: Psychiatric History: Reports: Depression Endocrine/Metabolic History: Reports: Hypothyroidism, Other (See Below) Other Endocrine/Metabolic History: Tyrese's Hematologic History: Reports: Blood Transfusion(s), Other (See Below) Other Hematologic History: Blood transfusion following Primary c/s - Past Surgical History Female Surgical History: Reports: Section - SUBSTANCE USE Tobacco Use Status *Q: Never Tobacco User Second Hand Smoke Exposure: No Recreational Drug Use History: No - HOME MEDS Home Medications: Home Meds Iron 18 mg PO DAILY 12/25/15 [History] Levothyroxine [Synthroid] 100 mcg PO ACBREAKFAST 12/25/15 [History] Acetaminophen [Tylenol] 650 mg PO Q6H PRN tablet 06/25/18 [Rx] Benzocaine/Menthol [Dermoplast Pain Relief [place]] 1 spray TOP ASDIRECTED PRN canister 06/25/18 [Rx] Docusate Sodium [Colace] 100 mg PO BID PRN cap 06/25/18 [Rx] Ibuprofen [Motrin] 600 mg PO Q6H PRN tablet 06/25/18 [Rx] Lanolin [Lansinoh HPA] 1 applic TOP ASDIRECTED PRN tube 06/25/18 [Rx] witch Norma [Tucks] 1 pad TOP ASDIRECTED PRN pad 06/25/18 [Rx] - CURRENT (IN HOUSE) MEDS Current Meds: Current Medications Diphenhydramine HCl (Benadryl) 25 mg IVPUSH Q6H PRN PRN Reason: pruritis Ephedrine Sulfate (Ephedrine Sulfate) 5 mg IVPUSH ASDIRECTED PRN PRN Reason: Hypotension Fentanyl (Sublimaze) 100 mcg EPIDUR Q3H PRN PRN Reason: Pain Fentanyl/Bupivacaine HCl (Fentanyl/Bupivacaine/Ns 2 Mcg-0.125% 100 Ml) 100 ml EPIDUR ASDIRECTED PRN PRN Reason: Pain Oxytocin/Lactated Ringer's (Pitocin In Lr 10 Units/1,000 Ml) 10 unit in 1,000 mls @ 12 mls/hr IV TITRATE CARMEN; Protocol Last Titration: 04/16/20 19:47 Dose: 2 munits/min, 12 mls/hr Documented by: Oxytocin/Lactated Ringer's (Pitocin In Lr 10 Units/1,000 Ml) 10 unit in 1,000 mls @ 100 mls/hr IV .CONTINUOUS CARMEN Lactated Ringer's (Ringers, Lactated) 1,000 mls @ 100 mls/hr IV ASDIRECTED CARMEN Last Admin: 04/16/20 19:28 Dose: 100 mls/hr Documented by: Nalbuphine HCl (Nubain) 10 mg IVPUSH Q2H PRN PRN Reason: Pain Ondansetron HCl (Zofran) 4 mg IVPUSH Q4H PRN PRN Reason: Nausea/Vomiting Sodium Chloride (Saline Flush) 10 ml FLUSH ASDIRECTED PRN PRN Reason: Keep Vein Open
--- NOTE | 2020-04-16 20:05 | PCM.LDHP ---
L&D History of Present Illness - General Date of Service: 04/16/20 Admit Problem/Dx: Patient Status Order with Admit Dx/Problem 04/16/20 15:30 Patient Status [ADT] Routine Admission Diagnosis/Problem Admission Diagnosis/Problem 04/16/20 19:53 Luz Maria is a 25-year-old 3 para 2-0-0-2 white female who is admitted on the afternoon of 04/16/2020 at 39-1/7 weeks gestational age with an ANGEL of 2020 in active labor with progressive cervical dilation. Source of Information: Patient History Limitations: Reports: No Limitations - History of Present Illness Introduction:: Luz Maria is a 25-year-old 3 para 2-0-0-2 white female who is admitted on the afternoon of 04/16/2020 at 39-1/7 weeks gestational age with an ANGEL of 04/22/2020 in active labor with progressive cervical dilation. She reported contractions since last evening which have now increased to frequency of q. 7 minutes. Her cervix is dilated to 4-1/2 cm / 90% effaced/-3 station/anterior/very soft/cephalic presentation/bulging bag alan. INDUSTRIAL SEWER history: Francine is a 3 para 2-0-0-2. She had menarche at age 13. Cycles every 30 to 42 days and irregular. Last menstrual period is unknown. Her ANGEL is determined by an ultrasound done at 11-1/7 weeks gestational age on 10/03/2019. Is supported by another ultrasound done at 24 weeks and 5 days. Her past obstetric history includes the followin. A female infant born 12/18/2015 at 39 weeks gestational age9 pounds 2 ounces. Primary section done for failure to progress. Spinal anesthetic. Failed vacuum extraction. Child's name is Jona. 2. Female infant born 06/24/2018 at 38-6/7 weeks gestational age after 18 hours of labor7 pounds 14 ouncesepidural [facility]. Nuchal cord x1 loose reduced over the baby's head. Child's name is Rj Cleaning course: First visit was at 11-1/7 weeks gestational age. Ultrasound done at that time was used to determine her ANGEL. She was seen on a very regular basis from that visit till present time. Her weight gain was from 191.2 pounds to 200 pounds. Her vital signs remained stable throughout the course and her fundal height growth was appropriate. Patient has history of followed by successful after a trial of labor. She is group B strep negative. Epidural was set up for 04/22/2020. She is desiring epidural in labor. She had positive trichomonas first trimester and was rechecked would which showed negative test for trichomonas organisms and trichomonas antigen on 12/05/2019. Her [facility] depression screen score on 12/05/2019 was 4/30. 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 She had a history of transfusion after her . She is planning on breast-feeding. Plans to do a trial of labor after section for attempt at and this has been discussed in detail on several occasions with the patient including risks, benefits, preparations to help reduce risk, possible need for intervention, consent signing, laboratory preop testing and continuous monitoring. No guarantees were made that she will be able to achieve a . Laboratory testing in shows her blood to be O+ with a negative antibody screen. First labs show a hemoglobin of 13.2 g/dL and platelets at 285,000. Her Pap smear showed ASCUS changes but with negative HPV assay. Rubella titer shows immunity. RPR is nonreactive. Urine culture was negative. Hepatitis B surface antigen and HIV assays were both negative. Chlamydia and gonorrhea tests were both negative. Her TSH on 09/15/2019 was elevated at 9.441 milliunits from liter. Her levothyroxine was increased and repeat evaluation was within normal limits. Second trimester hemoglobin was 10.5 and platelets were 256,000. Her 1 hour GTT was normal at 125. Her group B strep screen was negative. Free T4 on 02/03/2020 was 0.73 and her TSH at that time was 8.222. Allergies: Negative Medications: 1. vitamins daily 2. Levothyroxine sodium 200 mcg/day Past medical history: 1. Tyrese's thyroiditis with resultant hypothyroidism on replacement and clinically euthyroid. 2. depression was on antidepressant therapy 3. Failure to grass with macrosomic first baby. Resulted in primary section 4. Successful with last Past surgical history: 1. Primary section 2016 for failure to progress secondary to cephalop elvic disproportion secondary to a 9 pound 2 ounce baby. Family history: Mother is alive but with a history of Tyrese's thyroiditis. Father is alive and well. 1 brother alive and well and 1 sister with Tyrese's thyroiditis. Maternal grandfather is alive and well. Maternal grand mother is alive but with a history of breast cancer x2. She is status post chemotherapy radiation and mastectomy. She also has a history of heart valve replacement. Paternal grandfather is alive and well. Paternal grandmother is secondary to Alzheimer's in her late 70s. There is no family history of cancer related issues bleeding or clotting abnormalities. Her first child has cerebellar hypoplasia. Social history: Patient is . is Brandon Garcia. They live in [place], [place] she is a [id number] mom. She does not use any significant also alcohol, drugs or tobacco. Review of systems: Generally patient is reporting mild to moderate contractions. Some pelvic pressure noted. She denies any leakage of fluid. She reports good activity.. Skin: Negative Lungs: No infectious symptoms or shortness of breath Cardiovascular: No chest pain or exercise intolerance Breasts: No lumps, changes in size, pain, dimpling, discharge or axillary or supraclavicular concerns. GI: Negative : Changes associated with . Musculoskeletal: Negative Neurological: Negative Physical exam: In general the patient is well-developed, well-nourished, pleasant female of stated age in no acute distress. On the day of admission patient seen in clinic at which time her blood pressure was 108/70. Weight was 200 with a pregravida weight of 191.2. Height is 5 feet 5 inches. Prepregnancy body mass index was 30. heart rate was 165 earlier today. Skin is warm dry without lesions. HEENT, neck and back within normal limits. Lungs are clear with good breath sounds in all lung rodriguez. Cardiovascular exam shows regular and rhythm without murmurs. Breast exam was done at first annual visit found to be normal. Is not repeated at this time. Patient plans to breast-feed. Abdomen is gravid with last fundal height in clinic today at 40 cm. Baby in vertex presentation. Genital per digital exam shows dilation as outlined above.. Extremities and neurological exam are grossly within normal limits. - Related Data Allergies/Adverse Reactions: Allergies Allergy/AdvReac Type Severity Reaction Status Date / Time No Known Allergies Allergy Verified 04/16/20 15:34 Home Medications: Home Meds Iron 18 mg PO DAILY 12/25/15 [History] Levothyroxine [Synthroid] 100 mcg PO ACBREAKFAST 12/25/15 [History] Acetaminophen [Tylenol] 650 mg PO Q6H PRN tablet 06/25/18 [Rx] Benzocaine/Menthol [Dermoplast Pain Relief [place]] 1 spray TOP ASDIRECTED PRN canister 06/25/18 [Rx] Docusate Sodium [Colace] 100 mg PO BID PRN cap 06/25/18 [Rx] Ibuprofen [Motrin] 600 mg PO Q6H PRN tablet 06/25/18 [Rx] Lanolin [Lansinoh HPA] 1 applic TOP ASDIRECTED PRN tube 06/25/18 [Rx] witch Norma [Tucks] 1 pad TOP ASDIRECTED PRN pad 06/25/18 [Rx] Past Medical History - Past Health History Medical/Surgical History: Denies Medical/Surgical History Cardiovascular History: Reports: None Respiratory History: Reports: None Gastrointestinal History: Reports: None INDUSTRIAL SEWER History: Reports: Psychiatric History: Reports: Depression Endocrine/Metabolic History: Reports: Hypothyroidism, Other (See Below) Other Endocrine/Metabolic History: Tyrese's Hematologic History: Reports: Blood Transfusion(s), Other (See Below) Other Hematologic History: Blood transfusion following Primary c/s - Past Surgical History Female Surgical History: Reports: Section Social & Family History - Family History Family Medical History: No Pertinent Family History - Tobacco Use Tobacco Use Status *Q: Never Tobacco User Second Hand Smoke Exposure: No - Caffeine Use Caffeine Use: Reports: None - Recreational Drug Use Recreational Drug Use: No H&P Review of Systems - Review of Systems: Review Of Systems: See Below L&D Exam - Exam Exam: See Below - Vital Signs Vital Signs: Last Vital Signs Temp 36.9 C 04/16/20 15:30 Pulse Resp 16 04/16/20 15:30 BP 118/67 04/16/20 15:30 Pulse Ox 100 04/16/20 15:30 Weight: 91.172 kg - Patient Data Lab Results Last 24 hrs: Laboratory Results - last 24 hr 04/16/20 04/16/20 Range/Units 15:40 15:45 WBC 9.67 (3.98-10.04) K/mm3 RBC 4.45 (3.98-5.22) M/mm3 Hgb 11.7 (11.2-15.7) gm/dl Hct 36.8 (34.1-44.9) % MCV 82.7 (79.4-94.8) fl MCH 26.3 (25.6-32.2) pg MCHC 31.8 L (32.2-35.5) g/dl RDW Std Deviation 46.8 H (36.4-46.3) fL Plt Count 261 (182-369) K/mm3 MPV 10.0 (9.4-12.3) fl Neut % (Auto) 70.8 (34.0-71.1) % Lymph % (Auto) 21.4 (19.3-51.7) % Love % (Auto) 6.3 (4.7-12.5) % Eos % (Auto) 0.9 (0.7-5.8) Baso % (Auto) 0.2 (0.1-1.2) % Neut # (Auto) 6.84 H (1.56-6.13) K/mm3 Lymph # (Auto) 2.07 (1.18-3.74) K/mm3 Love # (Auto) 0.61 H (0.24-0.36) K/mm3 Eos # (Auto) 0.09 (0.04-0.36) K/mm3 Baso # (Auto) 0.02 (0.01-0.08) K/mm3 SARS-CoV-2 RNA (SONALI) Negative (NEGATIVE) Result Diagrams: 04/16/20 15:45 Problem List Initiated/Reviewed/Updated: Yes Orders Last 24hrs: Active Orders 24 hr Category Date Time Status Patient Status [ADT] Routine ADT 04/16/20 15:30 Active Activity as Tolerated [RC] PFP Care 04/16/20 15:30 Active Communication Order [RC] ASDIRECTED Care 04/16/20 15:30 Active Communication Order [RC] ASDIRECTED Care 04/16/20 19:35 Active Cooling Warming Measures [RC] ASDIRECTED Care 04/16/20 19:35 Active Heart Tones [RC] ASDIRECTED Care 04/16/20 15:31 Active Non Stress Test [RC] PER UNIT ROUTINE Care 04/16/20 15:30 Active Notify Provider [RC] ASDIRECTED Care 04/16/20 19:35 Active Notify Provider [RC] ASDIRECTED Care 04/16/20 19:35 Active Notify Provider [RC] PFP Care 04/16/20 15:30 Active Notify Provider [RC] PRN Care 04/16/20 15:30 Active Oxygen Therapy [RC] ASDIRECTED Care 04/16/20 19:35 Active Peripheral IV Care [RC] . DIRECTED Care 04/16/20 15:31 Active Pulse Oximetry [RC] ASDIRECTED Care 04/16/20 19:35 Active Vital Signs [RC] PER UNIT ROUTINE Care 04/16/20 15:30 Active Vital Signs [RC] Q1H Care 04/16/20 19:35 Active Regular Diet [DIET] Diet 04/16/20 Dinner Active RAPID PLASMA REAGIN,RPR [CHEM] Routine Lab 04/16/20 15:45 Received Bupivacaine/fentaNYL/NS [fentaNYL/Bupivacaine/NS 2 MCG- Med 04/16/20 19:35 Ac tive 0.125% 100 ML] 100 ml EPIDUR ASDIRECTED PRN Lactated Ringers [Ringers, Lactated] 1,000 ml Med 04/16/20 15:30 Active IV ASDIRECTED Nalbuphine [Nubain] Med 04/16/20 15:30 Active 10 mg IVPUSH Q2H PRN Ondansetron [Zofran] Med 04/16/20 15:30 Active 4 mg IVPUSH Q4H PRN Oxytocin/Lactated Ringers [Pitocin in LR 10 Units/1,000 Med 04/16/20 15:30 Active ML] 10 unit in 1,000 ml IV .CONTINUOUS Oxytocin/Lactated Ringers [Pitocin in LR 10 Units/1,000 Med 04/16/20 15:30 Active ML] 10 unit in 1,000 ml IV TITRATE Sodium Chloride 0.9% [Saline Flush] Med 04/16/20 15:30 Active 10 ml FLUSH ASDIRECTED PRN diphenhydrAMINE [Benadryl] Med 04/16/20 19:35 Active 25 mg IVPUSH Q6H PRN ePHEDrine [ePHEDrine sulfate] Med 04/16/20 19:35 Active 5 mg IVPUSH ASDIRECTED PRN fentaNYL [Sublimaze] Med 04/16/20 19:35 Active 100 mcg EPIDUR Q3H PRN Electronic Heart Tones Ext w TOCO [WOMSER] Oth 04/16/20 15:30 Ordered Routine Electronic Heart Tones Internal [WOMSER] Per Unit Oth 04/16/20 15:30 Ordered Routine Peripheral IV Insertion Adult [OM.PC] Routine Oth 04/16/20 15:30 Ordered Resuscitation Status Routine Resus Stat 04/16/20 15:30 Ordered Medication Orders Diphenhydramine HCl (Benadryl) 25 mg IVPUSH Q6H PRN PRN Reason: pruritis Ephedrine Sulfate (Ephedrine Sulfate) 5 mg IVPUSH ASDIRECTED PRN PRN Reason: Hypotension Fentanyl (Sublimaze) 100 mcg EPIDUR Q3H PRN PRN Reason: Pain Fentanyl/Bupivacaine HCl (Fentanyl/Bupivacaine/Ns 2 Mcg-0.125% 100 Ml) 100 ml EPIDUR ASDIRECTED PRN PRN Reason: Pain Oxytocin/Lactated Ringer's (Pitocin In Lr 10 Units/1,000 Ml) 10 unit in 1,000 mls @ 12 mls/hr IV TITRATE CARMEN; Protocol Last Titration: 04/16/20 19:47 Dose: 2 munits/min, 12 mls/hr Documented by: Titration: 04/16/20 19:29 Dose: 0 munits/min, 0 mls/hr Documented by: Titration: 04/16/20 18:24 Dose: 8 munits/min, 48 mls/hr Documented by: Titration: 04/16/20 17:45 Dose: 6 munits/min, 36 mls/hr Documented by: Titration: 04/16/20 16:55 Dose: 4 munits/min, 24 mls/hr Documented by: Admin: 04/16/20 16:23 Dose: 2 munits/min, 12 mls/hr Documented by: JOSUE Oxytocin/Lactated Ringer's (Pitocin In Lr 10 Units/1,000 Ml) 10 unit in 1,000 mls @ 100 mls/hr IV .CONTINUOUS CARMEN Lactated Ringer's (Ringers, Lactated) 1,000 mls @ 100 mls/hr IV ASDIRECTED CARMEN Last Admin: 04/16/20 19:28 Dose: 100 mls/hr Documented by: Infusion: 04/16/20 19:28 Dose: 100 mls/hr Documented by: Admin: 04/16/20 16:19 Dose: 100 mls/hr Documented by: JOSUE Nalbuphine HCl (Nubain) 10 mg IVPUSH Q2H PRN PRN Reason: Pain Ondansetron HCl (Zofran) 4 mg IVPUSH Q4H PRN PRN Reason: Nausea/Vomiting Sodium Chloride (Saline Flush) 10 ml FLUSH ASDIRECTED PRN PRN Reason: Keep Vein Open Assessment/Plan Comment:: 1.Luz Maria is a 25-year-old 3 para 2-0-0-2 white female who is admitted on the afternoon of 04/16/2020 at 39-1/7 weeks gestational age with an ANGEL of 04/22/2020 in active labor with progressive cervical dilation. 2. Group B strep screen negative 3. Patient desiring regional analgesia in labor 4. Patient plans to breast-feed. 5. Risk factors for the include the following: History of previous section desire for /having successfully , hypothyroidism on replacement. 6. RPR negative. Flu shot given on 01/30/2020 as well as Tdap. She is rubella immune. Plan: 1. Admit to labor and delivery. Anticipate /. 2. Precautionary measures taken because the patient was status. Consent for trial of labor after section for an attempt at vaginal after section and for a repeat section are signed by the patient. The procedures, risk, benefits, alternatives of care discussed in detail with patient on number of occasions. She wishes to proceed and signed the consents. 3. Preoperative labs are drawn and completed 4. Will do near continuous monitoring 5. Regional analgesia per patient desire. SCDs and [place] catheter may be incorporated into this plan. 6. Anesthesia and surgery are aware of the patient's presence in labor and the reattempting a . 7. Support patient is breast-feeding decision. 8. Routine labor care.
--- NOTE | 2020-04-16 21:38 | PCM.SN.2 ---
- Free Text/Narrative Note: Delivery note: Luz Maria is a 25-year-old 3 para 3003 white female who is admitted on the afternoon of 04/16/2020 at 39-1/7 weeks gestational age with an ANGEL of 04/22/2020 in active labor with progressive cervical dilation. He had a previous section, a successful with her last and desired at this time. The process, procedure, risk, benefits alternatives of care were discussed in detail with patient. She appeared to understand, wish to proceed and consents were signed for a trial of labor after section for an attempt at vaginal after section and for a repeat section. At the time of admission the baby's head was still very high and patient underwent Pitocin augmentation of labor. She brought have done well at which time she had spontaneous rupture membranes with resultant clear amniotic fluid. heart tones are reassuring. She had a spinal placed as she rapidly went through labor and there is no time for epidural. She did get moderate to good results from the spinal block. She rapidly progressed to complete cervical dilation. At 2104 hrs. on 04/16/2020 she delivered a viable, astorga, male with Apgars of 6 and 9 via vacuum extraction delivery done for a 3-minute bradycardia. With 1 push the patient delivered the head. The anterior shoulder was delivered as was the posterior shoulder with noted and then on upper gentle traction. No problems were encountered. The baby was placed on mom's abdomen. Nose mouth bulb suction the baby was dried. Pitocin was increased to 500 cc an hour to facilitate increase in uterine tone and decrease likelihood of bleeding. The baby's weight was 3890 g (8 pounds 9.2 ounces) and the length was 21 inches. The umbilical cord is allowed to pulsate for approximately 3 minutes and then was clamped x2 and cut by the baby's father. Cord bloods obtained. The umbili nick cord had 3 vessels. Patient was noted to have a stellate shaped laceration involving the right labia the perineal body and the left labia and one will segment inside the vagina. These were closed with short running sutures of 3-0 Monocryl suture. Spinal analgesia was used for perineal laceration anesthesia. Patient tolerated procedure well. The placenta delivered in a Tate presentation at 2116 hrs. It appeared intact and complete and was discarded per patient desire. Patient plans to breast-feed. Estimated blood loss was 200 cc. Condition: Good.
[2020-04-16] MEDS ORDERED: Acetaminophen 325 MG Tab PO PRN (22:13)
[2020-04-16] MEDS ORDERED: Benzocaine/Menthol 20%-0.5% Spray 56 GM Canister TOP PRN (22:13)
[2020-04-16] MEDS ORDERED: Witch Hazel Medicated Pads 40/Jar TOP PRN (22:13)
[2020-04-16] MEDS ORDERED: Docusate Sodium 100 MG Cap PO PRN (22:13)
[2020-04-16] MEDS: Ibuprofen 600 MG Tab PO PRN (22:51)
[2020-04-17] MEDS: Ibuprofen 600 MG Tab PO PRN ×3 (06:46→18:05)
--- NOTE | 2020-04-17 08:00 | PCM48HPAN ---
Post Anesthesia Note - EVALUATION WITHIN 48HRS OF ANESTHETIC Vital Signs in Normal Range: Yes Patient Participated in Evaluation: Yes Respiratory Function Stable: Yes Airway Patent: Yes Cardiovascular Function Stable: Yes Hydration Status Stable: Yes Pain Control Satisfactory: Yes Nausea and Vomiting Control Satisfactory: Yes Mental Status Recovered: Yes Vital Signs: Last Vital Signs Temp 37.1 C 04/17/20 03:13 Pulse 71 04/17/20 03:13 Resp 14 04/17/20 03:13 BP 103/52 L 04/17/20 03:13 Pulse Ox 99 04/17/20 03:13
[2020-04-17] MEDS: Prenatal Multivitamin with Calcium/Folic Acid/Iron Tab PO SCH (08:41)
--- NOTE | 2020-04-17 17:24 | PCM.SN.2 ---
- Free Text/Narrative Note: note: Patient is doing well in the period. Minimal lochia, voiding well, ambulated without problems. Nursing without concerns. Patient is afebrile, vital signs are stable Abdomen is flat, soft, uterus is below the umbilicus and is firm and nontender. Legs are nontender. Assessment: recovery going well. Plan: Routine care. Patient be discharged home within the next 24-48 hours.
[2020-04-18] MEDS: Ibuprofen 600 MG Tab PO PRN ×3 (00:07→08:31)
[2020-04-18] MEDS: Prenatal Multivitamin with Calcium/Folic Acid/Iron Tab PO SCH (08:32)
--- NOTE | 2020-04-18 09:22 | PCM.DCSUM1 ---
Discharge Summary - Hospital Course Free Text/Narrative:: Luz Maria is a 25-year-old 3 para 3003 white female who is admitted on the afternoon of 04/16/2020 at 39-1/7 weeks gestational age with an ANGEL of 04/22/2020 in active labor with progressive cervical dilation. He had a previous section, a successful with her last and desired at this time. The process, procedure, risk, benefits alternatives of care were discussed in detail with patient. She appeared to understand, wish to proceed and consents were signed for a trial of labor after section for an attempt at vaginal after section and for a repeat section. At the time of admission the baby's head was still very high and patient underwent Pitocin augmentation of labor. She brought have done well at which time she had spontaneous rupture membranes with resultant clear amniotic fluid. heart tones are reassuring. She had a spinal placed as she rapidly went through labor and there is no time for epidural. She did get moderate to good results from the spinal block. She rapidly progressed to complete cervical dilation. At 2104 hrs. on 04/16/2020 she delivered a viable, astorga, male with Apgars of 6 and 9 via vacuum extraction delivery done for a 3-minute bradycardia. With 1 push the patient delivered the head. The anterior shoulder was delivered as was the posterior shoulder with noted and then on upper gentle traction. No problems were encountered. The baby was placed on mom's abdomen. Nose mouth bulb suction the baby was dried. Pitocin was increased to 500 cc an hour to facilitate increase in uterine tone and decrease likelihood of bleeding. The baby's weight was 3890 g (8 pounds 9.2 ounces) and the length was 21 inches. The umbilical cord is allowed to pulsate for approximately 3 minutes and then was clamped x2 and cut by the baby's father. Cord bloods obtained. The umbilical cord had 3 vessels. Patient was noted to have a stellate shaped laceration involving the right labia the perineal body and the left labia and one will segment inside the vagina. These were closed with short running sutures of 3-0 Monocryl suture. Spinal analgesia was used for perineal laceration anesthesia. Patient tolerated procedure well. The placenta delivered in a Tate presentation at 2116 hrs. It appeared intact and complete and was discarded per patient desire. Patient plans to breast-feed. Estimated blood loss was 200 cc. patient has done well. She has had minimal lochia, is nursing well, ambulating well and voiding without problems. She is desiring discharge home. Condition: Good. Diagnosis: Stroke: No - Discharge Data Discharge Date: 04/18/20 Discharge Disposition: Home, Self-Care 01 Condition: Good - Referral to Home Health Primary Care Physician: Jennifer Dasilva PA-C - Patient Instructions Diet: Regular Diet as Tolerated (Nursing diet with increased calories and calcium as recommended.) Activity: As Tolerated (Noted course of tampons until bleeding resolves) Driving: May Drive Today Showering/Bathing: May Shower Showering/Bathing, Other: May take a bath - Discharge Plan Home Medications: Home Meds Iron 18 mg PO DAILY 12/25/15 [History] Levothyroxine [Synthroid] 100 mcg PO ACBREAKFAST 12/25/15 [History] Acetaminophen [Tylenol] 650 mg PO Q6H PRN tablet 06/25/18 [Rx] Benzocaine/Menthol [Dermoplast Pain Relief [place]] 1 spray TOP ASDIRECTED PRN canister 06/25/18 [Rx] Docusate Sodium [Colace] 100 mg PO BID PRN cap 06/25/18 [Rx] Ibuprofen [Motrin] 600 mg PO Q6H PRN tablet 06/25/18 [Rx] Lanolin [Lansinoh HPA] 1 applic TOP ASDIRECTED PRN tube 06/25/18 [Rx] witch Norma [Tucks] 1 pad TOP ASDIRECTED PRN pad 06/25/18 [Rx] Acetaminophen [Tylenol] 650 mg PO Q4H PRN tablet 04/18/20 [Rx] Ibuprofen [Motrin] 600 mg PO Q4H PRN tablet 04/18/20 [Rx] Referrals: Rick Grider MD [Physician] - ([facility] - Discharge Summary/Plan Comment DC Time >30 min.: No Discharge Summary/Plan Comment: Discharge instructions: 1. Discharge home 2. Diet, activity and follow-up discussed with patient. Recommend nursing diet with increased calories and calcium. 3. Precautions given concern increased pain, bleeding, temperature, signs/sym ptoms of DVT/PE. 4. Medications per home medication was printed, discussed with and given to the patient. 5. Return to clinic-Dr. Grider[facility] in 2 weeks. Diagnosis: 1. Term -delivered by . Condition: Good - Patient Data Vitals - Most Recent: Last Vital Signs Temp 36.9 C 04/18/20 04:01 Pulse 64 04/18/20 04:01 Resp 16 04/18/20 04:01 BP 98/63 04/18/20 04:01 Pulse Ox 100 04/18/20 04:01 Weight - Most Recent: 91.172 kg I&O - Last 24 hours: Intake & Output 04/17/20 04/18/20 04/18/20 22:59 06:59 14:59 Intake Total 240 Balance 240 Med Orders - Current: Current Medications Acetaminophen (Tylenol) 650 mg PO Q4H PRN PRN Reason: mild pain or fever Benzocaine/Menthol (Dermoplast Pain Relief [place]) 0 gm TOP ASDIRECTED PRN PRN Reason: Perineal Comfort Measure Last Admin: 04/16/20 22:52 Dose: 1 applic Documented by: Docusate Sodium (Colace) 100 mg PO BID PRN PRN Reason: Constipation Ibuprofen (Motrin) 600 mg PO Q4H PRN PRN Reason: Mild pain or fever Last Admin: 04/18/20 08:31 Dose: 600 mg Documented by: Levothyroxine Sodium (Levothyroxine) 200 mcg PO ACBREAKFAST [facility] Last Admin: 04/18/20 06:02 Dose: 200 mcg Documented by: Prenat Multivit/[place]/Iron/Folic Ac ( Plus Iron) 1 each PO DAILY [facility] Last Admin: 04/18/20 08:32 Dose: 1 each Documented by: Dylan Brush ([facility]) 1 pad TOP ASDIRECTED PRN PRN Reason: Perineal Comfort Measure Last Admin: 04/16/20 22:52 Dose: 1 applic Documented by: Discontinued Medications Bupivacaine HCl (Sensorcaine-Mpf 0.25%) 10 ml .ROUTE .STK-MED ONE Stop: 04/16/20 00:01 Diphenhydramine HCl (Benadryl) 25 mg IVPUSH Q6H PRN PRN Reason: pruritis Ephedrine Sulfate (Ephedrine Sulfate) 5 mg IVPUSH ASDIRECTED PRN PRN Reason: Hypotension Fentanyl (Sublimaze) 100 mcg EPIDUR Q3H PRN PRN Reason: Pain Fentanyl/Bupivacaine HCl (Fentanyl/Bupivacaine/Ns 2 Mcg-0.125% 100 Ml) 100 ml EPIDUR ASDIRECTED PRN PRN Reason: Pain Oxytocin/Lactated Ringer's (Pitocin In Lr 10 Units/1,000 Ml) 10 unit in 1,000 mls @ 12 mls/hr IV TITRATE CARMEN; Protocol Last Titration: 04/16/20 20:34 Dose: 6 munits/min, 36 mls/hr Documented by: Oxytocin/Lactated Ringer's (Pitocin In Lr 10 Units/1,000 Ml) 10 unit in 1,000 mls @ 100 mls/hr IV .CONTINUOUS CARMEN Lactated Ringer's (Ringers, Lactated) 1,000 mls @ 100 mls/hr IV ASDIRECTED CARMEN Last Admin: 04/16/20 20:33 Dose: 100 mls/hr Documented by: Nalbuphine HCl (Nubain) 10 mg IVPUSH Q2H PRN PRN Reason: Pain Ondansetron HCl (Zofran) 4 mg IVPUSH Q4H PRN PRN Reason: Nausea/Vomiting Sodium Chloride (Saline Flush) 10 ml FLUSH ASDIRECTED PRN PRN Reason: Keep Vein Open
[2020-04-18 09:27] VITALS: BP 103/69; PULSE 58
== END 2020-04-18 10:34 | disposition home or self-care (01) | DRG 560 ==
LOC: JD.OB 15:28 → OBSVTOIN 21:04 → JD.OB 21:04
PROVIDERS: ADMIT Obstetrics & Gynecology; ATTEND Obstetrics & Gynecology
PROC: 10D07Z6 Extraction of Products of Conception, Vacuum, Via Natural or Artificial Opening (ICD-10-PCS; principal; 2020-04-16)
PROC: 0HQ9XZZ Repair Perineum Skin, External Approach (ICD-10-PCS; 2020-04-16)
PROC: 3E0R3BZ Introduction of Anesthetic Agent into Spinal Canal, Percutaneous Approach (ICD-10-PCS; 2020-04-16)
DX: O76 Abnormality in fetal heart rate and rhythm complicating labor and delivery (principal); Z3A.39 39 weeks gestation of pregnancy; Z37.0 Single live birth; O70.0 First degree perineal laceration during delivery; O99.284 Endocrine, nutritional and metabolic diseases complicating childbirth; E03.9 Hypothyroidism, unspecified; Z79.890 Hormone replacement therapy; Z20.828 Contact with and (suspected) exposure to other viral communicable diseases
CPT/HCPCS: 01967; 36415; 59025; 59409; 85025; 86592; A9270-GY; J2590; J3490; J7120; U0002